=== PATIENT | female | born 2000 | race African-American/Black ===

== ENCOUNTER 2018-08-25 14:40 | Emergency (ER) | payer OTHER ==
[~2018-08-25] VITALS: Ht 154.9 cm; Wt 58.6 kg
[2018-08-25] MEDS ORDERED: diphenhydrAMINE 50 MG CAP PO ONE (15:15)
[2018-08-25 16:03] LABS: HCG, SERUM QUALITATIVE NEGATIVE (NEGATIVE)
[2018-08-25 16:32] VITALS: BP 113/78
== END 2018-08-25 16:33 | disposition home or self-care (01) ==
LOC: M ED 14:40
DX: Z32.02 Encounter for pregnancy test, result negative (principal)

== ENCOUNTER 2019-10-11 08:03 | Emergency (ER) | payer OTHER ==
[~2019-10-11] VITALS: Ht 154.9 cm; Wt 59.3 kg
[2019-10-11] MEDS ORDERED: PREN29TA4 PO (08:20)
[2019-10-11 08:58] LABS: BASO # 0.1 10^3/uL (0.0-0.2); EOS # 0.1 10^3/uL (0.0-0.5); EOS % 1.9 % (0.0-3.0); HEMOGLOBIN 13.2 g/dl (12.0-15.5); LYMPH # 2.2 10^3/uL (1.5-5.0); LYMPH % 30.8 % (24.0-44.0); MEAN CORPUSCULAR HEMOGLOBIN 28.1 pg (27.0-33.0); MEAN CORPUSCULAR HGB CONC 33.8 g/dl (32.0-36.5); MEAN CORPUSCULAR VOLUME 83.2 fl (80.0-96.0); MONO # 0.9 10^3/uL (0.0-0.8); MONO % 13.5 % (0.0-5.0); NEUTROPHILS # 3.7 10^3/uL (1.5-8.5); NEUTROPHILS % 52.5 % (36.0-66.0); PLATELET COUNT, AUTOMATED 270 10^3/uL (150-450); RED BLOOD COUNT 4.69 10^6/uL (4.00-5.40)
[2019-10-11 09:50] LABS: AMORPHOUS SEDIMENT SMALL (NEGATIVE); APPEARANCE, URINE CLEAR (CLEAR); BACTERIA, URINE AUTO NEGATIVE (NEGATIVE); BILIRUBIN, URINE AUTO NEGATIVE (NEGATIVE); BLOOD, URINE BLOOD NEGATIVE (NEGATIVE); COLOR, URINE YELLOW (YELLOW); GLUCOSE, URINE (UA) AUTO NEGATIVE (NEGATIVE); KETONE, URINE AUTO NEGATIVE (NEGATIVE); LEUKOCYTE ESTERASE, URINE AUTO NEGATIVE (NEGATIVE); NITRITE, URINE AUTO NEGATIVE (NEGATIVE); PROTEIN, URINE AUTO NEGATIVE (NEGATIVE); RBC, URINE AUTO 0 /HPF (0-3); SPECIFIC GRAVITY URINE AUTO 1.012 (1.002-1.035); SQUAMOUS EPITHELIAL CELL UR AU 1 /HPF (0-6); UROBILINOGEN, URINE AUTO 0.2 mg/dL (0.0-2.0); WBC, URINE AUTO 0 /HPF (0-3)
[2019-10-11] MEDS ORDERED: metroNIDAZOLE (FLAGYL) 500 MG TAB PO ONE (10:15)
[2019-10-11 10:17] VITALS: BP 106/69
[2019-10-11] MEDS ORDERED: FLAG500T PO (10:18)
[2019-10-11 10:34] LABS: CHLAMYDIA DNA AMPLIFICATION NEGATIVE (NEGATIVE); GC DNA AMPLIFICATION NEGATIVE (NEGATIVE)
--- NOTE | 2019-10-11 11:24 | REPVR ---
PROCEDURE INFORMATION: Exam: US First Trimester, Transabdominal Exam date and time: 10/11/2019 9:47 AM Age: 19 years old Clinical indication: LMP or gestational age (in weeks): 10; Antepartum complications; Bleeding; ; Additional info: Vaginal bleeding TECHNIQUE: Imaging protocol: Real-time transabdominal obstetrical ultrasound of the maternal pelvis and a first trimester , less than 14 weeks 0 days, with image documentation. COMPARISON: No relevant prior studies available. FINDINGS: Gestation: Intrauterine gestational sac at the uterine fundus. A single pole is present within the gestational sac. Heart rate: heart rate measures 169 beats/min. Placenta: Small hypoechoic crescentic fluid collection adjacent to the gestational sac consistent with a small subchorionic hemorrhage. Amniotic fluid: Amniotic fluid is normal for gestational age. BIOMETRY: Estimated gestational age: 10 weeks 1 day Conde-Rump length: 33 mm Estimated due date: 05/07/2020 MATERNAL: Uterus: Unremarkable as visualized. Cervix: Unremarkable as visualized. Right adnexa: The right ovary measures 2.1 x 1.6 x 1.9 cm. No mass. Left adnexa: The left ovary measures 3.1 x 2.4 x 2.5 cm. No mass. Intraperitoneal space: No intraperitoneal free fluid. IMPRESSION: 1. Single viable intrauterine with estimated gestational age by ultrasound of 10 weeks 1 day. 2. Small subchorionic hemorrhage. Electronically signed by: Carlos Enrique Corbett On 10/11/2019 11:23:47 AM
== END 2019-10-11 10:27 | disposition home or self-care (01) ==
LOC: M ED 08:03
DX: O23.591 Infection of other part of genital tract in pregnancy, first trimester (principal); O20.8 Other hemorrhage in early pregnancy; Z3A.10 10 weeks gestation of pregnancy

== ENCOUNTER 2020-05-12 06:04 | Inpatient (IN) | payer OTHER ==
[2020-05-12] VITALS (19 sets, daily range): BP systolic 110–135; BP diastolic 63–99
[~2020-05-12] VITALS: Ht 154.9 cm; Wt 72.0 kg
[~2020-05-12 06:04] MED LIST: FLAG500T PO; PREN29TA4 PO
--- OUTSIDE RECORDS SUMMARY | 2020-05-12 06:16 | CCD ---
Author Author [facility] Organization [facility] Address Unknown Phone Unavailable Support Name Relationship Address Phone [facility] Next Of Kin [address] [place] [address] Unavailable ROMMEL CARROLL Next Of Kin [id number] [place] [address] Re-disclosure Warning The records that you are about to access may contain information from federally-assisted alcohol or drug abuse programs. If such information is present, then the following federally mandated warning applies: This information has been disclosed to you from records protected by federal confidentiality rules (42 CFR part 2). The federal rules prohibit you from making any further disclosure of this information unless further disclosure is expressly permitted by the written consent of the person to whom it pertains or as otherwise permitted by 42 CFR part 2. A general authorization for the release of medical or other information is NOT sufficient for this purpose. The Federal rules restrict any use of the information to criminally investigate or prosecute any alcohol or drug abuse patient.The records that you are about to access may contain highly sensitive health information, the redisclosure of which is protected by Article 27-F of the [facility] Public Health law. If you continue you may have access to information: Regarding HIV / AIDS; Provided by facilities licensed or operated by the [facility] Office of Mental Health; or Provided by the [facility] Office for People With Developmental Disabilities. If such information is present, then the following [facility] mandated warning applies: This information has been disclosed to you from confidential records which are protected by state law. State law prohibits you from making any further disclosure of this information without the specific written consent of the person to whom it pertains, or as otherwise permitted by law. Any unauthorized further disclosure in violation of state law may result in a fine or senior care sentence or both. A general authorization for the release of medical or other information is NOT sufficient authorization for further disc losure. Insurance Providers Payer name Policy type / Coverage type Policy ID Covered democrat ID Covered democrat's relationship to [place] Policy [place] Plan Information [facility] ACTIVE DUTY [id number] SP [id number] SELF PAY O UNAVAILABLE S UNAVAILA BLE [facility] REG O [id number] O [id number]
[2020-05-12 07:08] LABS: HEMATOCRIT 43.3 % (36.0-47.0); HEMOGLOBIN 14.7 g/dl (12.0-15.5); MEAN CORPUSCULAR HEMOGLOBIN 28.9 pg (27.0-33.0); MEAN CORPUSCULAR HGB CONC 33.9 g/dl (32.0-36.5); MEAN CORPUSCULAR VOLUME 85.2 fl (80.0-96.0); PLATELET COUNT, AUTOMATED 250 10^3/uL (150-450); RED BLOOD COUNT 5.08 10^6/uL (4.00-5.40); WHITE BLOOD COUNT 24.8 10^3/uL (4.0-10.0)
[2020-05-12] MEDS ORDERED: PENICILLIN G POTASSIUM IV 5 MU in D5W MINI-BAG PLUS 100 ML IV STA (07:16)
[2020-05-12] MEDS ORDERED: LR 1,000 ML IV SCH (10:15)
[2020-05-12] MEDS: LR 1,000 ML IV SCH ×3 (10:35→18:04)
--- NOTE | 2020-05-12 10:40 | HPEPDOC ---
Obstetrical History & Physical General Date of Admission May 12, 2020 at 06:04 Primary Care Physician: Oziel Rodriguez MD History of Present Illness FOR IOL AT40.1 WEEKS HAD STRIPPING OF MEMBRANES AND STARTED CONTRACTIONS IRREGULAR. NOTED GBS POSITIVE Chief Complaint: Contractions, term Information Provided By: Patient Age: 19 : 1 Term: 0 Pre-term: 0 Abortions: 0 Livin Care Care: Good Care Dating Final EDC: May 11, 2020 Final EDC for Daily Update: May 11, 2020 Final EDC by: LMP LMP: Aug 05, 2019 1st Trimester Date: Oct 11, 2019 Weeks + Days: 9.4 Estimated Date of Confinement: May 11, 2020 EGA at Admission: 40.1 Antepartum Course Diagnos(e)s 40.1 WEEKS IRREGULAR CONTRACTIONS AFTER STRIPPING MEMBRANES Height (inches): 61 Pre- weight (lbs.): 135 Admission Weight (lbs.): 158 Change in Weight (lbs.): 23 Past Medical History Past Obstetrical History : Past Obstetrical History: Primgravida [employer] History: No pertinent history Past Medical History Surgical History: Denies/None Family History Significant Family History: No pertinent family hx Family History NON CONTRIBUTORY Social History Marital Status: Family situation: Spouse/partner home Psychosocial History: No pertinent psych hx * Smoker: non-smoker Alcohol: Denies Drugs: denies Abuse Violence Screening Have you been hit/kicked/slapp: No Have you been sexually assault: No Imunizations Tdap status: current Influenza Status: current Allergies Coded Allergies: No Known Allergies (Unverified , 08/25/18) Medications Scheduled Prenat 115/Iron Fum/Folic/Dss ( 19 Tablet) 1 Each Tablet, 1 TAB PO DAILY Physical Examination Physical Examination GENERAL: Alert and oriented times three. BREAST: . ABDOMEN: Gravid and non-tender to touch. FETUS: Is vertex (VTX) by sterile vaginal examination (SVE), fetus is vertex (VTX) by Fede. HEART RATE: Regular rate and rhythm. LUNGS: Clear to auscultation (CTA). EXTREMITIES: No edema. No clonus. Deep tendon reflexes (DTRs) NEGATIVE. Other physical findings MILD CONTRACTIONS 1 CM POSTERIOR THICK NO VAGINAL DISCHARGE NO BLEEDING CATAGORY 1 STRIP Vital Signs/I&O Vital Signs Date Time Temp Pulse Resp B/P (MAP) Pulse Ox O2 Delivery O2 Flow Rate FiO2 05/12/20 07:57 100 16 126/83 (97) 05/12/20 06:45 98.5 Laboratory Data 24H LABS Laboratory Tests 2 05/12/20 06:47: Nucleated Red Blood Cells % (auto) 0.0, Syphilis Serology NONREACTIVE 05/12/20 07:47: Serology Scanned Report Hepatitis B Testing CBC/BMP Laboratory Tests 05/12/20 06:47 Pertinent Laboratoy Data Blood Type: O+ RBC Antibody Screen: Negative HIV: Negative Hepatitis B: Negative Rapid Plasma Reagin: Nonreactive Rubella: Immune Varicella: Immune Chlamydia/Gonorrhea: Negative Group B Streptococcus: Positive Cystic Fibrosis: Negative Anatomy Ultrasound Ultrasound Date: Dec 22, 2019 Placenta Location: Anterior Normal Anatomy: Yes Placenta Previa: No Steroid Therapy Steroid Therapy: No Vaginal Examination Dilation: 1cm Effacement: 50% Station: -3 Cervical Consistency: Firm Cervical Position: Middle Presentation: Cephalic presentation Position: Vertex (occiput) Assessment Variability: Moderate Accelerations: Positive Decelerations: None Tocometer Contractions: Yes Frequency: irregular Duration: less than 60 seconds Strength: palpated as mild Assessment/Plan Assessment 19 -year-old (G)1 para (P)0 at 40.1 weeks by 9.4 -week ultrasound. Presents to Labor and Delivery (L&D) IOL . Plan Admit and orient. Piggery Worker and consent. Diet: CESARIO Group B Streptococcus (GBS POSITIVE Labs and intravenous (IV) per unit protocol. Counseled on Pitocin and induction of labor (IOL). Lactated Ringers (LR): Bolus 1000mL, then at 125 mL/hr. PRE EPIDURAL Anticipate [normal spontaneous delivery ()]. C-S as appropriate. Labor and Delivery Counseling REVIEWED PLAN OF CARE SINCE STRIPPING MEMBRANES CONTRACTIONS NOT VERY EFFECTIVE . WILL HYDRATE CESARIO THEN START PITOCIN . REVIEWED RISK OF VAGINAL DELIVERY WITH LACERATIONS TO CERVIX, VAGINA , RECTUM, NEED FOR REPAIR NEED FOR EPISIOTOMY POSSIBLE NEED FOR VACUUM OR FORCEPS FOR DELIVERY FOR OR MATERNAL INDICATIONS NEED FOR EMERGENCY CS CONTINUATION OF LABOR MAY BE HARMFUL TO FETUS OR MOTHER RISK OF CS HEMORRHAGE INFECTION PERFORATION REOPERATION , REMOTE BLOOD TRANSFUSION REMOTE HYSTERECTOMY. POSSIBLE BABY ADMISSION TO NICU RISK WITH OPERATIVE DELIVERY CEPHALOHEMATOMA, SUBDURAL HEMATOMA OR LACERATIONS EXPRESSED UNDERSTANDING SAFE TO PROCEED Oziel Rodriguez MD May 12, 2020 10:38
[2020-05-12] MEDS ORDERED: PENICILLIN G POTASSIUM IV 2.5 MU in IV 1 EA IV SCH (11:30)
[2020-05-12] MEDS ORDERED: MAPA500T2 PO (13:48)
[2020-05-12] MEDS ORDERED: IRON27TA2 PO (13:48)
[2020-05-12] MEDS: PENICILLIN G POTASSIUM IV 2.5 MU in IV 1 EA IV SCH ×2 (14:54→18:36)
[2020-05-12] MEDS ORDERED: FENTANYL 2MCG/ML ROPIVACAINE 0.2% IN 0.9% NACL 100ML IVBAG As Ordered ONE (19:07)
[2020-05-12] MEDS ORDERED: ePHEDrine SULFATE 25 MG/5 ML(5MG/ML) SYRINGE IV PRN (19:30)
[2020-05-12] MEDS ORDERED: NALOXONE INJ 0.4MG/1ML VIAL (J2310 PER 1MG) IV PRN (19:30)
[2020-05-12] MEDS ORDERED: EPIDURAL COMMENT XX SCH (19:30)
[2020-05-12] MEDS ORDERED: FENTANYL/ROPIVACAINE/NACL BAG 100 ML EPIDURAL SCH (19:30)
[2020-05-12] MEDS ORDERED: REFRIGERATOR IV KEYS XX PRN (19:30)
[2020-05-12] MEDS ORDERED: LACTATED RINGER'S 1000 ML IV PRN (19:30)
[2020-05-12] MEDS ORDERED: ONDANSETRON 4MG/2ML VIAL IV PRN (19:30)
[2020-05-12] MEDS ORDERED: diphenhydrAMINE 50MG/ML VIAL (J1200) IV PRN (19:30)
[2020-05-12] MEDS ORDERED: EPIDURAL/PCA KEYS XX PRN (19:30)
--- NOTE | 2020-05-12 20:00 | IPNPDOC ---
Text Note Date of Service The patient was seen on 05/12/20. NOTE ASSESSMENT PRE EPIDURAL. CONTRACTIONS MODERATE ASKING FOR EPIDURAL EXAMINATION 4 CM 100 % EFFACED BULGING MEMBRANES -3 STATION ANTIBIOTIC COVERAGE CATEGORY 1 STRIP SAFE TO PROCEED VS,Dustin, I+O VS, Dustin, I+O Laboratory Tests 05/12/20 06:47 Vital Signs Date Time Temp Pulse Resp B/P (MAP) Pulse Ox O2 Delivery O2 Flow Rate FiO2 05/12/20 18:17 92 16 125/83 (97) 05/12/20 17:45 99.1 Oziel Rodriguez MD May 12, 2020 20:00
--- NOTE | 2020-05-12 20:02 | IPNPDOC ---
Text Note Date of Service The patient was seen on 05/12/20. NOTE POST EPIDURAL EXAMINATION NO CHANGE CERVIX, PLANNED AROM CLEAR FLUID CATEGORY 1 STRIP IF CONTRACTIONS FALL OFF WILL AUGMENT WITH PITOCIN PLAN REVIEWED WITH PATIENT , SAFE TO PROCEED VS,Dustin, I+O VSDustin, I+O Laboratory Tests 05/12/20 06:47 Vital Signs Date Time Temp Pulse Resp B/P (MAP) Pulse Ox O2 Delivery O2 Flow Rate FiO2 05/12/20 18:17 92 16 125/83 (97) 05/12/20 17:45 99.1 Oziel Rodriguez MD May 12, 2020 20:02
[2020-05-12] MEDS ORDERED: OXYTOCIN DRIP 30 UNITS in IV 1 EA IV SCH (20:15)
[2020-05-12] MEDS ORDERED: **PENDING PCN ENTRY XX SCH (21:00)
[2020-05-12] MEDS ORDERED: MOM 30ML SUSPENSION UDC PO PRN (21:30)
[2020-05-12] MEDS ORDERED: DOCUSATE SODIUM 100MG CAPSULE PO PRN (21:30)
[2020-05-12] MEDS ORDERED: BENZOCAINE 20% HEMORRHOIDAL OINTMENT 28GM TUBE TOP PRN (21:30)
[2020-05-12] MEDS ORDERED: RHOGAM 300 MCG (1500 IU) INJ (J2790) IM SCH (21:30)
[2020-05-12] MEDS ORDERED: ACETAMINOPHEN 500 MG TAB PO PRN (21:30)
[2020-05-12] MEDS ORDERED: OXYTOCIN INJ 10 UNITS/ML VIAL (J2590) IV ONE (21:30)
[2020-05-12] MEDS ORDERED: MEASLES,MUMPS,RUBELLA VACCINE INJ (MMR-II) (90707) SC SCH (21:30)
[2020-05-12] MEDS ORDERED: ACETAMINOPHEN TAB 650MG DOSE (2X325MG) PO PRN (21:30)
[2020-05-12] MEDS ORDERED: ANUSOL HC CREAM 30GM TOP PRN (21:30)
[2020-05-12] MEDS ORDERED: IBUPROFEN 600MG TAB PO PRN (21:30)
[2020-05-12] MEDS ORDERED: METHYLERGONOVINE MALEATE 0.2 MG TAB PO PRN (21:30)
[2020-05-12] MEDS ORDERED: OXYTOCIN DRIP 30 UNITS in IV 1 EA IV ONE (21:30)
[2020-05-12 21:52] LABS: CORD GAS ABE A -2.7; CORD GAS HCO3 A 25.1 MEQ/L; CORD GAS O2 SAT A 20.3 %; CORD GAS PCO2 A 56.5 mmHg; CORD GAS PH A 7.265 UNITS; CORD GAS PO2 A 13.8 mmHg; CORD GAS SBC A 20.5 MEQ/L; CORD GAS TCO2 A 26.8 MEQ/L
[2020-05-12 21:55] LABS: CORD GAS ABE V -2.9; CORD GAS HCO3 V 22.2 MEQ/L; CORD GAS O2 SAT V 62.6 %; CORD GAS PCO2 V 39.7 mmHg; CORD GAS PH V 7.365 UNITS; CORD GAS PO2 V 26.6 mmHg; CORD GAS SBC V 21.3 MEQ/L; CORD GAS TCO2 V 23.4 MEQ/L
[2020-05-13 06:00] VITALS: BP 125/68
[2020-05-13 06:42] LABS: HEMATOCRIT 39.1 % (36.0-47.0); HEMOGLOBIN 13.2 g/dl (12.0-15.5); MEAN CORPUSCULAR HEMOGLOBIN 29.2 pg (27.0-33.0); MEAN CORPUSCULAR HGB CONC 33.8 g/dl (32.0-36.5); MEAN CORPUSCULAR VOLUME 86.5 fl (80.0-96.0); PLATELET COUNT, AUTOMATED 229 10^3/uL (150-450); RED BLOOD COUNT 4.52 10^6/uL (4.00-5.40); WHITE BLOOD COUNT 28.9 10^3/uL (4.0-10.0)
--- NOTE | 2020-05-13 06:55 | IPNPDOC ---
Progress Note Date of Service: May 13, 2020 Day#: 1 Progress Note SUBJECT: 20-year-old 1 now Para 1 status post uncomplicated spontaneous vaginal delivery at 40.1 weeks' of a female 6 pounds 11 ounces 3040 grams) with intact perineum doing well day # 1 . She has been ambulating, voiding spontaneously without issue and tolerating regular diet. Breast feeding without issue. Reports lochia is [like a normal period]. Patient is ambulating well. [Reports some cramping with . Denies any pain. Voiding and stooling without difficulty]. OBJECTIVE: VITAL SIGNS: Within normal limits, afebrile. Alert and oriented times three. Breath sounds clear to auscultation. Heart rate: Regular rate and rhythm, no murmurs, rubs or gallops. Abdomen: Fundus firm at U-2. Soft, NTTP. [Minimal] lochia. ASSESSMENT: 20-year-old 1 now Para 1 status post uncomplicated spontaneous vaginal delivery after presenting IOL with AROM , delivered 40.1 weeks', doing well on day 1 . Vitals within normal limits, afebrile, hemodynamically stable with no evidence of infection. PLAN: 1. Discharge to home tomorrow 2. Tylenol and Motrin for pain. 3. Encourage breast feeding and ambulation. 4. discuss at 6 week pp visit 5. Routine PP visit in 6 weeks in clinic. 6. Discussed return precautions at length. VS, I&O, 24H, Fishbone Vital Signs/I&O Vital Signs Date Time Temp Pulse Resp B/P (MAP) Pulse Ox O2 Delivery O2 Flow Rate FiO2 05/13/20 06:00 99.3 108 18 125/68 (87) I&O- Last 24 Hours up to 6 AM 05/13/20 05:59 Intake Total 3180 ml Output Total 650 ml Balance 2530 ml Laboratory Data 24H LABS Laboratory Tests 2 05/12/20 07:47: Serology Scanned Report Hepatitis B Testing 05/12/20 21:45: Cord Arterial Blood pH 7.265, Cord Arterial Blood PCO2 56.5, Cord Arterial Blood PO2 13.8, Cord Arterial Blood HCO3 25.1, Cord Arterial Blood Total CO2 26.8, Cord Arterial Blood Base Excess -2.7, Cord Arterial Base Excess (Standard 20.5, Cord Arterial Bld Oxygen Saturation 20.3, Cord Venous Blood pH 7.365, Cord Venous Blood PCO2 39.7, Cord Venous Blood PO2 26.6, Cord Venous Blood HCO3 22.2, Cord Venous Blood Total CO2 23.4, Cord Venous Base Excess (Actual) -2.9, Cord Venous Base Excess (Standard) 21.3, Cord Venous Blood Oxygen Saturation 62.6 05/13/20 06:20: Nucleated Red Blood Cells % (auto) 0.0 CBC/BMP Laboratory Tests 05/13/20 06:20 Oziel Rodriguez MD May 13, 2020 06:55
[2020-05-13] MEDS: PRENATAL VITAMINS CHEWABLE TABLET PO SCH (08:11)
[2020-05-13] MEDS ORDERED: INFLUENZA QUADRIVALENT PF VACCINE 0.5ML SYRINGE IM ONE (09:00)
--- NOTE | 2020-05-13 14:44 | DN ---
DELIVERY NOTE DATE OF DELIVERY: 05/12/2020 TIME OF : GENDER: Female. APGARS: 9 and 9. LACERATIONS: ANESTHESIA: ESTIMATED BLOOD LOSS: COUNTS: DESCRIPTION OF DELIVERY: This lady is a 20-year-old 1, who was admitted for induction of labor at 40.1 weeks of gestation. She had membrane stripping in the office and had irregular contractions when she came in. She was GBS positive, prophylactically treated prior to delivery. She had an epidural in place and at full dilatation, delivered a live female infant. Apgars of 9 and 9 at one and five minutes respectively. Weight 6 pounds 11 ounces (3040 grams). Arterial and venous pH were performed. Blood gases are not available at the present time. The placenta delivered spontaneously thereafter with three-vessel cord. Membranes and tissues intact. The anterior, posterior, and lateral garcia complete. Sphincter was tight. The uterus contracted well down on Pitocin. Patient and baby tolerating procedure well.
[2020-05-13 18:11] VITALS: BP 117/81
[2020-05-14 06:00] VITALS: BP 11/67
[2020-05-14] MEDS ORDERED: AMER20OI TOP (06:47)
[2020-05-14] MEDS ORDERED: IBUP-1022 PO (06:47)
--- NOTE | 2020-05-14 07:05 | DS.PDOC ---
Discharge Summary General Date of Admission May 12, 2020 at 06:04 Date of Discharge May 14, 2020 Discharge Summary HOSPITAL COURSE: Dony is a 20 yo G1 now P1 who was admitted for a social IOL on 12May2020 at 40+1 weeks gestation. She underwent an uncomplicated on that same day. Her course has been unremarkable. On her day of discharge she met all appropriate discharge criteria. She was ambulating, voiding, tolerating a regular diet, had minimal lochia, and her pain was well controlled with PO pain medications. DISCHARGE MEDICATIONS: Please see below. ALLERGIES: Please see below. PHYSICAL EXAMINATION ON DISCHARGE: VITAL SIGNS: Please see below. GENERAL: AAOX3, laying in bed, NAD, pleasant and conversant ABDOMINAL EXAMINATION: Abdomen soft, nondistended. No tenderness to palpation. Fundus firm at U-2. No fundal tenderness. EXTREMITIES: No edema PSYCHIATRIC EXAMINATION: Affect appropriate LABORATORY DATA: Please see below. ACTIVITY: Pelvic rest for 6 weeks. DIET: Regular DISCHARGE PLAN: Discharge home or to boarder DISPOSITION: .Discharge home or to boarder on 14May2020 DISCHARGE INSTRUCTIONS: 1. Pelvic rest for 6weeks ITEMS TO FOLLOWUP ON ON OUTPATIENT: 1. appointment in 6-8 weeks DISCHARGE CONDITION: Stable TIME SPENT ON DISCHARGE: Greater than 20 minutes. Joan Velasquez DO Vital Signs/I&Os Vital Signs Date Time Temp Pulse Resp B/P (MAP) Pulse Ox O2 Delivery O2 Flow Rate FiO2 05/14/20 06:00 96.6 94 18 11/67 (49) 99 Room Air l I&O- Last 24 Hours up to 6 AM 05/14/20 06:00 Intake Total 500 ml Balance 500 ml Discharge Medications Scheduled Prenat 115/Iron Fum/Folic/Dss ( 19 Tablet) 1 Each Tablet, 1 TAB PO DAILY, (Reported) Scheduled PRN Benzocaine (Americaine) 20% Oint...g., 0 DOSE TOP Q4H PRN for PAIN Ibuprofen (Ibuprofen) 600 Mg Tablet, 600 MG PO Q6HP PRN for PAIN LEVEL 1-5 Miscellaneous Medications Acetaminophen (Mapap) 500 Mg Tablet, 1,000 MG PO, (Reported) Allergies Coded Allergies: No Known Allergies (Unverified , 08/25/18) JOAN VELASQUEZ DO May 14, 2020 07:05
[2020-05-14 07:22] LABS: HEMATOCRIT 41.4 % (36.0-47.0); HEMOGLOBIN 13.9 g/dl (12.0-15.5); MEAN CORPUSCULAR HEMOGLOBIN 29.3 pg (27.0-33.0); MEAN CORPUSCULAR HGB CONC 33.6 g/dl (32.0-36.5); MEAN CORPUSCULAR VOLUME 87.2 fl (80.0-96.0); PLATELET COUNT, AUTOMATED 235 10^3/uL (150-450); RED BLOOD COUNT 4.75 10^6/uL (4.00-5.40)
[2020-05-14] MEDS: PRENATAL VITAMINS CHEWABLE TABLET PO SCH (08:51)
== END 2020-05-14 11:30 | disposition home or self-care (01) | DRG 807 ==
LOC: EEVIPCON 06:04 → M LDI 06:04 → M OBS 23:05
PROVIDERS: ADMIT Obstetrics & Gynecology; ATTEND Obstetrics & Gynecology
PROC: 10E0XZZ Delivery of Products of Conception, External Approach (ICD-10-PCS; principal; 2020-05-12)
PROC: 10907ZC Drainage of Amniotic Fluid, Therapeutic from Products of Conception, Via Natural or Artificial Opening (ICD-10-PCS; 2020-05-12)
DX: O48.0 Post-term pregnancy (principal); Z37.0 Single live birth; O99.824 Streptococcus B carrier state complicating childbirth; Z3A.40 40 weeks gestation of pregnancy